=== PATIENT | female | born 1975 | race Caucasian/White ===

== ENCOUNTER → 2017-09-21 | Outpatient (CLI) | payer OTHER ==
[~2017-09-21] MED LIST: PRENCAP6 PO; VITATAB25 PO
== END ==
LOC: HPND 08:50
PROVIDERS: ATTEND Obstetrics & Gynecology
DX: O09.522 Supervision of elderly multigravida, second trimester (principal); O35.8XX0 Maternal care for other (suspected) fetal abnormality and damage, not applicable or unspecified; Z36.3 Encounter for antenatal screening for malformations
CPT/HCPCS: 76811

== ENCOUNTER 2017-12-16 17:28 | Emergency (ER) | payer OTHER ==
[~2017-12-16] VITALS: Ht 170.2 cm; Wt 90.0 kg
[2017-12-16 17:51] VITALS: BP 139/74; PULSE 98; RESP 18; TEMP 98; O2SAT 98
[2017-12-16] MEDS ORDERED: PREN29TA PO (19:01)
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
== END 2017-12-16 21:52 | disposition home or self-care (01) ==
LOC: NEPD 17:28 → HOBED 21:52
DX: Z04.1 Encounter for examination and observation following transport accident (principal)
CPT/HCPCS: 59025

== ENCOUNTER 2018-01-03 04:18 | Inpatient (IN) | payer OTHER ==
[~2018-01-03] VITALS: Ht 170.2 cm; Wt 92.0 kg
[~2018-01-03 04:18] MED LIST changes: +PREN29TA PO; -PRENCAP6 PO; -VITATAB25 PO
[2018-01-03] MEDS ORDERED: LACTATED RINGER'S 1000 ML INJ 1,000 ML IV ONE ×2 (04:55→12:00)
--- NOTE | 2018-01-03 05:00 | HHI.HP ---
HPI Chief Complaint Water broke Date Seen: January 03, 2018 Time Seen: 04:55 Travel History International Travel<30 Days: No Contact w/Intl Traveler<30Days: No Known Affected Area: No History of Present Illness HPI 42-year-old white female PCS at 39 weeks the patient to the [facility] clinic presents with gross rupture membranes light meconium, heart rate tracing reactive, she is sapphire irregularly and not feeling them Weeks Gestation: 39 Para: 1 : 3 Last Menstrual Period: January 03, 2018 Miscarriage: 1 History Obstetric History Obstetric History 1 in 2013 and in 2012 a molar Past Surgical History Narrative Surgical and a D&C for molar Breast implants Colposcopy and LEEP Social History Alcohol Use: No Tobacco Use: No Substance Abuse: No Allergies-Medications (Allergen,Severity, Reaction): Coded Allergies: No Known Allergies (Unverified Allergy, Unknown, 01/03/18) Home Meds Reported Medications Vit-Iron Carbonyl ( Plus Iron 29-1 mg) 29 Mg Iron-1 Mg Tab, 1 TAB PO DAILY for Nutritional Supplement, #30 TAB 0 Refills 12/16/17 Review of Systems General / Constitutional: No: Fever, Weight Gain, Chills, Other Eyes: No: Diploplia, Blurred Vision, Visual changes, Pain, Photophobia HENT: No: Headaches, Vertigo, Lightheadedness Cardiovascular: No: Irregular Rhythm, Chest Pain or Discomfort, Palpitations, Tachycardia, Syncope, Varicosities, Edema, Cyanosis Respiratory: No: Cough, Short of Breath, Other Gastrointestinal: No: Nausea, Vomiting, Diarrhea Genitourinary: No: Decreased Urinary Output, Oliguria Musculoskeletal: No: Limited ROM, Weakness, Cramping, Edema, Pain Skin: No Rash, No Itching, No Dryness, No Lumps, No Change in Pigmentation, No Change in Nails, No Alopecia, No Lesions Neurologic: No: Weakness, Dizziness, Syncope, Focal Abnormalities, Coordination Problem, Headache, Slurred Speech, Seizures Psychiatric: No: Depression, Suicidal Ideations, Homicidal Ideation Endocrine: No: Heat Intolerance, Cold Intolerance, Polydipsia, Polyuria, Other Physical Exam Narrative GENERAL: Well-nourished, well-developed patient. SKIN: Warm and dry. HEAD: Normocephalic and atraumatic. EYES: No scleral icterus. No injection or drainage. ENT: No nasal drainage noted. Mucous membranes pink. Airway patent. NECK: Supple, trachea midline. No JVD. CARDIOVASCULAR: Regular rate and rhythm without murmurs, gallops, or rubs. RESPIRATORY: Breath sounds equal bilaterally. No accessory muscle use. BREASTS: Bilateral exam showed no masses , no retractions, no nipple discharge. ABDOMEN/GI: Abdomen soft, non-tender, bowel sounds present, no rebound, no guarding Gravid to [39-] weeks size Fundal Height: [39-] GENITOURINARY: External Genitalia: intact and normal in appearance BUS glands: [-] Cervix: [1-] Dilatation: [-1] Effacement: [50-] Station: [-3] Presentation: [vtx-] Membranes: [ ruptured] light meconium Uterine Contractions: [-irreg] FHT's: Category: [-1] Baseline: [133-] Reactive: [-R] Variability: [mod-] Decels: [0-] EXTREMITIES: No cyanosis or edema. BACK: Nontender without obvious deformity. No CVA tenderness. NEUROLOGICAL: Awake and alert. Motor and sensory grossly within normal limits. Five out of 5 muscle strength in all muscle groups. Normal speech. Caprini VTE Risk Assessment Caprini VTE Risk Assessment: No/Low Risk (score <= 1) Caprini Risk Assessment Model Point Value = 1 Point Value = 2 Point Value = 3 Point Value = 5 Age 41-60 Minor surgery BMI > 25 kg/m2 Swollen legs Varicose veins or History of unexplained or recurrent spontaneous Oral contraceptives or hormone replacement Sepsis (< 1 month) Serious lung disease, including pneumonia (< 1 month) Abnormal pulmonary function Acute myocardial infarction Congestive heart failure (< 1 month) History of inflammatory bowel disease Medical patient at bed rest Age 61-74 Arthroscopic surgery Major open surgery (> 45 min) Laparoscopic surgery (> 45 min) Malignancy Confined to bed (> 72 hours) Immobilizing plaster cast Central venous access Age >= 75 History of VTE Family history of VTE Factor V Leiden Prothrombin [id number] Lupus anticoagulant Anticardiolipin antibodies Elevated serum homocysteine Heparin-induced thrombocytopenia Other congenital or acquired thrombophilia Stroke (< 1 month) Elective arthroplasty Hip, pelvis, or leg fracture Acute spinal cord injury (< 1 month) Prophylaxis Regimen Total Risk Factor Score Risk Level Prophylaxis Regimen 0-1 Low Early ambulation 2 Moderate Order ONE of the following: *Sequential Compression Device (SCD) *Heparin 5000 units SQ BID 3-4 Higher Order ONE of the following medications: *Heparin 5000 units SQ TID *Enoxaparin/Lovenox 40 mg SQ daily (WT < 150 kg, CrCl > 30 mL/min) *Enoxaparin/Lovenox 30 mg SQ daily (WT < 150 kg, CrCl > 10-29 mL/min) *Enoxaparin/Lovenox 30 mg SQ BID (WT < 150 kg, CrCl > 30 mL/min) AND/OR *Sequential Compression Device (SCD) 5 or more Highest Order ONE of the following medications: *Heparin 5000 units SQ TID (Preferred with Epidurals) *Enoxaparin/Lovenox 40 mg SQ daily (WT < 150 kg, CrCl > 30 mL/min) *Enoxaparin/Lovenox 30 mg SQ daily (WT < 150 kg, CrCl > 10-29 mL/min) *Enoxaparin/Lovenox 30 mg SQ BID (WT < 150 kg, CrCl > 30 mL/min) AND *Sequential Compression Device (SCD) Data Data Orders Orders Ob (2e) Additional Admit Info (01/03/18 04:41) Admit To Inpatient (01/03/18 ) Vital Signs (Adult) .ON ADMISSION (01/03/18 04:55) Activity Oob Ad Fatmata (01/03/18 04:55) Heart (01/03/18 04:55) Urinary Catheter Management SHAKILA.Q8H (01/03/18 04:55) ^ Preps (01/03/18 04:55) Scd / Silviano / Foot Pump SHAKILA.QSHIFT (01/03/18 04:55) ^ Ultrasound For Locatio (01/03/18 04:55) Diet Npo (01/03/18 Breakfast) Lactated Ringer's 1000 Ml Inj (Lr 1000 M (01/03/18 04:55) Lactated Ringer's 1000 Ml Inj (Lr 1000 M (01/03/18 05:25) Cefazolin 2 Gm Premix (Ancef 2 Gm Premix (01/03/18 06:00) Citric Acid-Sodium Citrate Liq (Bicitra (01/03/18 06:30) Type And Screen (01/03/18 04:55) Complete Blood Count With Diff (01/03/18 04:55) Urinalysis - C+S If Indicated (01/03/18 04:55) Drug Screen, Random Urine (01/03/18 04:55) Specimen To Be Collected PRN (01/03/18 04:55) Specimen To Be Collected PRN (01/03/18 04:55) Group B Strep: Negative Assessment/Plan Assessment and Plan 39 week intrauterine with gross rupture of membranes and light meconium not in labor at this time. Patient's previous and requests repeat which is she is scheduled for next week Logan Sanchez II, MD January 03, 2018 05:00
[2018-01-03 05:29] LABS: AUTOMATED NEUTROPHIL # 6.9 TH/MM3 (1.8-7.7); BASOPHIL # 0.1 TH/MM3 (0-0.2); BASOPHIL % 0.6 % (0.0-2.0); EOSINOPHIL # 0.1 TH/MM3 (0-0.4); EOSINOPHIL % 1.1 % (0.0-4.0); HEMATOCRIT 36.9 % (35.0-46.0); HEMOGLOBIN 12.8 GM/DL (11.6-15.3); LYMPH % 25.3 % (9.0-44.0); LYMPHOCYTE # 2.6 TH/MM3 (1.0-4.8); MEAN CELL VOLUME 84.8 FL (80.0-100.0); MEAN CORPUSCULAR HEMOGLOBIN 29.5 PG (27.0-34.0); MEAN CORPUSCULAR HGB CONC 34.8 % (32.0-36.0); MEAN PLATELET VOLUME 8.3 FL (7.0-11.0); MONO % 7.5 % (0.0-8.0); MONOCYTE # 0.8 TH/MM3 (0-0.9); NEUT % 65.5 % (16.0-70.0); PLATELET COUNT 352 TH/MM3 (150-450); RED BLOOD COUNT 4.35 MIL/MM3 (4.00-5.30); RED CELL DISTRIBUTION WIDTH 13.4 % (11.6-17.2); WHITE BLOOD COUNT 10.5 TH/MM3 (4.0-11.0)
[2018-01-03] MEDS: LACTATED RINGER'S 1000 ML INJ 1,000 ML IV SCH ×2 (05:43→07:14)
[2018-01-03 05:46] LABS: BILIRUBIN, URINE NEG (NEG); BLOOD, URINE SMALL (NEG); GLUCOSE,URINE NEG (NEG); KETONE, URINE NEG (NEG); MUCUS URINE FEW /lpf (OCC); NITRITE,URINE NEG (NEG); PH, URINE 6.5 (5.0-8.5); SQUAMOUS EPITHELIAL CELL URINE 6 /hpf (0-5); URINE COLOR LIGHT-YELLOW (YELLW/STRAW); URINE LEUKOCYTE ESTERASE NEG (NEG)
[2018-01-03] MEDS ORDERED: ceFAZolin 2 GM PREMIX 50 ML IV SCH (06:00)
[2018-01-03] MEDS ORDERED: CITRIC ACID-SODIUM CITRATE LIQ 30 ML UDC PO SCH (06:30)
[2018-01-03] MEDS ORDERED: MORPHINE SULFATE PF 5 MG/10 ML VIAL ONE (06:51)
[2018-01-03] MEDS ORDERED: ACETAMINOPHEN 1000 MG/100 ML 100 ML IV ONE ×2 (06:51→08:30)
[2018-01-03] MEDS ORDERED: SODIUM CHLORIDE 0.9% FLUSH 10 ML FLUSH IV FLUSH PRN (08:30)
[2018-01-03] MEDS ORDERED: oxyCODONE/ACETAMINOPHEN 5 MG/325 MG TAB PO PRN ×2 (08:30)
[2018-01-03] MEDS ORDERED: ONDANSETRON ODT 4 MG TAB SL PRN (08:30)
[2018-01-03] MEDS ORDERED: OXYTOCIN 30 UNITS-500ML PREMIX 500 ML IV ONE (08:30)
[2018-01-03] MEDS ORDERED: ZOLPIDEM TARTRATE 5 MG TAB PO PRN (08:30)
[2018-01-03] MEDS ORDERED: SIMETHICONE 80 MG CHEWABLE TAB PO PRN (08:30)
--- NOTE | 2018-01-03 08:38 | PD.OB.DELI ---
Procedure Note Section Procedure Pre Op Diagnosis: (1) Spontaneous rupture of amniotic membranes (2) Term (3) History of delivery Post Op Diagnosis: (1) S/P repeat low transverse (2) Spontaneous rupture of amniotic membranes (3) Term (4) History of delivery Performed by Shyla Horta Procedure: Repeat Low Transverse Sec Indication for delivery: Desired elective repeat Previous condition: None Informed consent obtained: For anesthesia, For procedure Confirmed correct: Patient, Procedure, Site, Time-out taken Anesthesia: Spinal Medication prior to procedure: As documented in eMAR Monitoring during procedure: Blood pressure monitoring, potline monitor, Pulse oximetry Urinary catheter: Inserted using sterile technique, To dependent drainage, ml urine output (200) Sterile preparation: Duraprep, In usual fashion, With drapes to expose affected area Position: Supine with wedge to right side Operative Features Skin Incision: Pfannenstiel Uterine Incision: Low transverse w/knife / scissors Membranes Ruptured: Previously, Amount of liquid (scant), Appearance of fluid ( meconium) Presentation: Vertex Delivery date: January 03, 2018 Delivery time: 07:59 Delivery of : Uneventful : Male, Single One Minute : 8 Five Minute : 9 Weight: 7#9oz Status of : Viable, Cord blood, Nursery present Placenta delivered: Intact Medications: Antibiotics (Ancef 2g IV preop) Estimated blood loss: 500 mL Procedure tolerated: Well Maternal Condition: Stable Condition: Stable Procedure in detail see dictated op note for full details Shyla Horta MD January 03, 2018 08:38
--- NOTE | 2018-01-03 08:56 | MP ---
cc: Shyla Horta MD DATE OF OPERATION: 01/03/2018 PREOPERATIVE DIAGNOSES: 1. at 38 weeks, 6 days. 2. Spontaneous rupture of amniotic fluid. 3. History of delivery for desired repeat. POSTOPERATIVE DIAGNOSIS: 1. at 38 weeks, 6 days. 2. Spontaneous rupture of amniotic fluid. 3. History of delivery for desired repeat. 4. Postoperative day number Zero. INDICATIONS FOR PROCEDURE: Chaka Aviles is a 42-year-old 3, para 2-0-1-2, who was seen and evaluated in the pharmacy delivery driver hours of 01/03/18 in the labor and delivery triage area for a complaint of leakage of fluid. She was ruled in for rupture of amniotic fluid, but she was having rare contractions and was not dilated. The patient had a history of delivery and desired a repeat. As such, she was taken for surgery. PROCEDURE PERFORMED: Repeat low transverse delivery. SURGEON: Shyla Horta MD TYPE OF ANESTHESIA: Spinal. ESTIMATED BLOOD LOSS: 500 mL. IV FLUIDS REPLACEMENT: 2600 mL. URINE OUTPUT: 200 mL clear urine draining the Mazariegos bag at the end of the procedure. COMPLICATIONS: None. COUNTS: Sponge, lap, instrument and needle correct x 2. PROPHYLAXIS: Ancef 2 grams IV was given preoperatively and SCDs were on and functioning throughout the entire case. INTRAOPERATIVE FINDINGS: Include a vigorous viable male with Apgars of 8 and 9, weight 7 pounds 9 ounces. Amniotic fluid was meconium. Normal appearing uterus and bilateral adnexa. Minimal scar tissue from prior . PROCEDURE IN DETAIL: After reviewing the informed consent, the patient was taken to the operating suite where a timeout was performed to identify the patient, the planned procedure and any known allergies to drugs or drug products. The patient was then placed sitting up on the exam table and spinal anesthesia was administered without difficulty and found to be adequate. The patient was then laid back in dorsal supine position with a bump under her right side. Abdomen and perineum were prepped and draped in normal sterile fashion. Mazariegos catheter was placed using sterile technique. Attention was turned abdominally where the patient's previous area of , which had some abnormal appearing scar tissue consistent with a keloid, was excised for a scar revision. The incision was then carried down to the underlying layer of fascia with the Bovie. The fascia was incised in the midline. Incision was extended laterally with sharp dissection using Mann scissors. Superior aspect of the fascial incision was elevated with Jennifer clamps and the rectus muscles were dissected off sharply with Mann scissors. Kochers were then moved to the inferior edge of the fascia and the rectus muscles were again dissected off sharply using Mann scissors. The rectus muscles were then in the midline. Peritoneum was identified, entered bluntly with surgeon's index finger. Incision was extended superiorly and inferiorly with good visualization of intra-abdominal contents. Bladder blade was placed. Using pickups and Metzenbaum scissors, a bladder flap was made. The bladder blade was then replaced. A scalpel was then used to make a low transverse uterine incision. This was extended bluntly using bandage scissors. 's head was then grasped and flexed out through the incision. Using gentle fundal pressure, the rest of the readily delivered. was immediately vigorous and crying upon delivery. The infant's nose and mouth were suctioned with bulb suction. Delayed cord clamping at 45 seconds was performed. Cord was then doubly clamped and cut. was handed off to the awaiting nursery staff. The placenta was delivered spontaneously using gentle cord traction and fundal massage. The uterus was then cleared of all clots and debris with sterile moist lap sponges and exteriorized. The uterine incision was repaired in a double-layer with 1 chromic, first in a running locked layer, then in an imbricating layer with excellent hemostasis noted. Posterior cul-de-sac was irrigated copiously with warm sterile saline. Uterus was returned to the abdomen. Peritoneum was then closed in a running layer with 2-0 chromic. Fascia was closed in a running layer with #1 Vicryl. Subcutaneous tissue was irrigated copiously and dried and the area was closed in an interrupted fashion using 2-0 chromic to close the subcutaneous space. The skin was then cleaned and dried and using a 3-0 Monocryl the skin was closed in a subcuticular fashion. Steri-Strips and a standard dressing were then placed. The procedure concluded at this point. The patient tolerated the procedure well without complications. DISPOSITION: The patient's estimated length of stay is 2-3 postoperative days and status is nursery. MD GRICELDA Garcia , 08:34 AM , 08:54 AM KALPESH
[2018-01-03] MEDS ORDERED: OXYTOCIN 30 UNITS-500ML PREMIX 500 ML ONE (08:58)
[2018-01-03] MEDS ORDERED: SODIUM CHLORIDE 0.9% FLUSH 10 ML FLUSH IV FLUSH SCH (09:00)
[2018-01-03] MEDS ORDERED: EPIDURAL-DO NOT ADMINISTER ANTICOAGULANTS PRN (10:15)
[2018-01-03] MEDS ORDERED: EPIDURAL-DIPHENHYDRAMINE HCL 50 MG CAP PO PRN (10:15)
[2018-01-03] MEDS ORDERED: EPIDURAL-NALOXONE HCL 0.4 MG/ML AMP IV PUSH PRN (10:15)
[2018-01-03] MEDS ORDERED: EPIDURAL-DIPHENHYDRAMINE HCL 50 MG/ML VIAL IV PUSH PRN (10:15)
[2018-01-03] MEDS ORDERED: EPIDURAL-NO SYSTEMIC NARCOTICS PRN (10:15)
[2018-01-03] MEDS: KETOROLAC TROMETHAMINE 60 MG/2 ML (IM) VIAL IM PRN ×2 (11:16→17:21)
[2018-01-03] MEDS ORDERED: DEXAMETHASONE SOD PHOS 4 MG/ML VIAL IV ONE (12:00)
[2018-01-03] MEDS ORDERED: ONDANSETRON HCL 4 MG/2 ML VIAL IV ONE (12:00)
[2018-01-03] MEDS ORDERED: OXYTOCIN 10 UNIT/ML AMP IV ONE (12:00)
[2018-01-03] MEDS ORDERED: PROMETHAZINE INJ 25 MG/ML VIAL IM PRN (12:30)
[2018-01-03] MEDS ORDERED: LACTATED RINGER'S 1000 ML INJ 1,000 ML IV SCH (13:29)
[2018-01-03] MEDS ORDERED: OXYTOCIN 30 UNITS-500ML PREMIX 500 ML IV PRN (13:30)
[2018-01-04] MEDS: IBUPROFEN 600 MG TAB PO PRN ×3 (05:34→20:55)
[2018-01-04] MEDS: ACETAMINOPHEN 325 MG TAB PO PRN ×3 (05:35→20:55)
[2018-01-04 05:48] LABS: AUTOMATED NEUTROPHIL # 8.6 TH/MM3 (1.8-7.7); BASOPHIL % 0.4 % (0.0-2.0); EOSINOPHIL % 0.3 % (0.0-4.0); HEMATOCRIT 28.8 % (35.0-46.0); HEMOGLOBIN 9.9 GM/DL (11.6-15.3); LYMPH % 18.4 % (9.0-44.0); LYMPHOCYTE # 2.1 TH/MM3 (1.0-4.8); MEAN CELL VOLUME 85.3 FL (80.0-100.0); MEAN CORPUSCULAR HEMOGLOBIN 29.3 PG (27.0-34.0); MEAN CORPUSCULAR HGB CONC 34.3 % (32.0-36.0); MEAN PLATELET VOLUME 7.8 FL (7.0-11.0); MONO % 6.8 % (0.0-8.0); MONOCYTE # 0.8 TH/MM3 (0-0.9); NEUT % 74.1 % (16.0-70.0); PLATELET COUNT 281 TH/MM3 (150-450); RED BLOOD COUNT 3.38 MIL/MM3 (4.00-5.30); RED CELL DISTRIBUTION WIDTH 13.7 % (11.6-17.2); WHITE BLOOD COUNT 11.6 TH/MM3 (4.0-11.0)
--- NOTE | 2018-01-04 08:23 | HHI.OB ---
Subjective Post Operative Day: 1 Objective Result Diagram: 01/04/18 0539 Objective Remarks GENERAL: Well-nourished, well-developed patient. CARDIOVASCULAR: Regular rate and rhythm without murmurs, gallops, or rubs. RESPIRATORY: Breath sounds equal bilaterally. No accessory muscle use. ABDOMEN/GI: Abdomen soft, non-tender, bowel sounds present. bandage Clean, dry and intact. Fundus: Firm, non-tender at umbilicus. GENITOURINARY: Light to moderate bleeding. EXTREMITIES: No cyanosis or edema, non-tender, without signs of DVT. Medications and IVs Current Medications Medications (Trade) Dose Ordered Sig/Dar Route Start Time Stop Time Status Last Admin Lactated Ringer's 1,000 ml @ 100 mls/hr Q10H IV 01/03/18 13:29 01/04/18 09:28 Oxytocin 500 ml @ 100 mls/hr UNSCH X1 PRN IV 01/03/18 13:30 01/04/18 13:29 (NS Flush) 2 ml BID IV FLUSH 01/03/18 09:00 (NS Flush) 2 ml UNSCH PRN IV FLUSH 01/03/18 08:30 (Mylicon Chew) 80 mg QID PRN PO 01/03/18 08:30 (Tylenol) 650 mg Q6H PRN PO 01/03/18 08:30 01/04/18 05:35 (Motrin) 600 mg Q6H PRN PO 01/03/18 08:30 01/04/18 05:34 (Toradol Inj) 30 mg Q6H PRN IM 01/03/18 08:30 01/04/18 08:29 01/03/18 17:21 (Percocet 5-325 Mg) 1 tab Q4H PRN PO 01/03/18 08:30 (Percocet 5-325 Mg) 2 tab Q4H PRN PO 01/03/18 08:30 (Denice-Colace) 2 tab Q12H PRN PO 01/03/18 08:30 (Ambien) 5 mg HS PRN PO 01/03/18 08:30 (M-M-R Ii Inj) 0.5 ml ONCE ONCE SQ 01/04/18 16:00 01/04/18 16:01 (Boostrix Inj) 0.5 ml ONCE ONCE IM 01/04/18 16:00 01/04/18 16:01 (Zofran Odt) 4 mg Q6H PRN SL 01/03/18 08:30 ([facility] [place] [facility] [place] NO SYSTEMIC NARCOTICS TO BE GIVEN FO... UNSCH PRN .XX 01/03/18 10:15 01/04/18 10:14 (Narcan Inj) 0.4 mg UNSCH PRN IV PUSH 01/03/18 10:15 01/04/18 10:14 (Benadryl Inj) 25 mg Q6H PRN IV PUSH 01/03/18 10:15 01/04/18 10:14 (Benadryl) 50 mg Q6H PRN PO 01/03/18 10:15 01/04/18 10:14 ([facility] [place] [facility] [place] ALL NURSING DEPARTMENTS UNSCH PRN .XX 01/03/18 10:15 01/04/18 10:14 (Phenergan Inj) 25 mg Q4H PRN IM 01/03/18 12:30 01/03/18 12:53 Assessment/Plan Assessment and Plan 39 week intrauterine with gross rupture of membranes and light meconium not in labor at this time. Patient's previous and requests repeat which is she is scheduled for next week POD 1: doing well no questions routine post op care Kellie Montero MD January 04, 2018 08:23
[2018-01-04] MEDS ORDERED: DIPHTH/TETANUS/ACEL PERTUSSIS (BOOSTER) 0.5 ML VIAL/PFS IM ONE (16:00)
[2018-01-04] MEDS ORDERED: MEASLES, MUMPS, RUBELLA VACCINE 0.5 ML VIAL SQ ONE (16:00)
[2018-01-04 20:08] VITALS: BP 142/62; PULSE 98; RESP 19; TEMP 98.4
[2018-01-04] MEDS: DOCUSATE SODIUM 50 MG/SENNA 8.6 MG TAB PO PRN (21:12)
[2018-01-05] MEDS: ACETAMINOPHEN 325 MG TAB PO PRN ×4 (02:53→21:47)
[2018-01-05] MEDS: IBUPROFEN 600 MG TAB PO PRN ×4 (02:53→21:44)
--- NOTE | 2018-01-05 07:41 | HHI.OB ---
Subjective Post Operative Day: 2 Remarks PT feeling ok, does not feel ready to go home. Is ambulating, voiding, passing flatus. Did not like how percocet made her feel. Objective Vitals/I&O Vital Signs Date Time Temp Pulse Resp B/P (MAP) Pulse Ox O2 Delivery O2 Flow Rate FiO2 01/04/18 20:08 98.4 98 19 142/62 (88) Result Diagram: 01/04/18 0539 Objective Remarks GENERAL: Well-nourished, well-developed patient. CARDIOVASCULAR: Regular rate and rhythm without murmurs, gallops, or rubs. RESPIRATORY: Breath sounds equal bilaterally. No accessory muscle use. ABDOMEN/GI: Abdomen soft, non-tender, bowel sounds present. incision Clean, dry and intact. Fundus: Firm, non-tender at umbilicus. GENITOURINARY: Light to moderate bleeding. EXTREMITIES: No cyanosis or edema, non-tender, without signs of DVT. Medications and IVs Current Medications Medications (Trade) Dose Ordered Sig/Dar Route Start Time Stop Time Status Last Admin (NS Flush) 2 ml BID IV FLUSH 01/03/18 09:00 (NS Flush) 2 ml UNSCH PRN IV FLUSH 01/03/18 08:30 (Mylicon Chew) 80 mg QID PRN PO 01/03/18 08:30 (Tylenol) 650 mg Q6H PRN PO 01/03/18 08:30 01/05/18 02:53 (Motrin) 600 mg Q6H PRN PO 01/03/18 08:30 01/05/18 02:53 (Percocet 5-325 Mg) 1 tab Q4H PRN PO 01/03/18 08:30 01/04/18 09:28 (Percocet 5-325 Mg) 2 tab Q4H PRN PO 01/03/18 08:30 (Denice-Colace) 2 tab Q12H PRN PO 01/03/18 08:30 01/04/18 21:12 (Ambien) 5 mg HS PRN PO 01/03/18 08:30 (Zofran Odt) 4 mg Q6H PRN SL 01/03/18 08:30 (Phenergan Inj) 25 mg Q4H PRN IM 01/03/18 12:30 01/03/18 12:53 Assessment/Plan Assessment and Plan POD 2 RCD : doing well routine post op care d/c tomorrow Ana Rodriguez MD January 05, 2018 07:41
[2018-01-05] MEDS: DOCUSATE SODIUM 50 MG/SENNA 8.6 MG TAB PO PRN ×2 (08:57→21:44)
[2018-01-05 20:41] VITALS: BP 126/80; PULSE 89; RESP 18; TEMP 98.4
[2018-01-06] MEDS: IBUPROFEN 600 MG TAB PO PRN ×2 (07:07→12:43)
[2018-01-06] MEDS: ACETAMINOPHEN 325 MG TAB PO PRN ×2 (07:07→11:14)
--- NOTE | 2018-01-06 08:49 | HHI.OB ---
Subjective Post Operative Day: 3 Remarks percocet too strong , will try norco Objective Vitals/I&O Vital Signs Date Time Temp Pulse Resp B/P (MAP) Pulse Ox O2 Delivery O2 Flow Rate FiO2 01/05/18 20:41 98.4 89 18 126/80 (95) Result Diagram: 01/04/18 0539 Objective Remarks GENERAL: Well-nourished, well-developed patient. CARDIOVASCULAR: Regular rate and rhythm without murmurs, gallops, or rubs. RESPIRATORY: Breath sounds equal bilaterally. No accessory muscle use. ABDOMEN/GI: Abdomen soft, non-tender, bowel sounds present. incision Clean, dry and intact. Fundus: Firm, non-tender at umbilicus. GENITOURINARY: Light to moderate bleeding. EXTREMITIES: No cyanosis or edema, non-tender, without signs of DVT. Medications and IVs Current Medications Medications (Trade) Dose Ordered Sig/Dar Route Start Time Stop Time Status Last Admin (NS Flush) 2 ml BID IV FLUSH 01/03/18 09:00 (NS Flush) 2 ml UNSCH PRN IV FLUSH 01/03/18 08:30 (Mylicon Chew) 80 mg QID PRN PO 01/03/18 08:30 (Tylenol) 650 mg Q6H PRN PO 01/03/18 08:30 01/06/18 07:07 (Motrin) 600 mg Q6H PRN PO 01/03/18 08:30 01/06/18 07:07 (Percocet 5-325 Mg) 1 tab Q4H PRN PO 01/03/18 08:30 01/04/18 09:28 (Percocet 5-325 Mg) 2 tab Q4H PRN PO 01/03/18 08:30 (Denice-Colace) 2 tab Q12H PRN PO 01/03/18 08:30 01/05/18 21:44 (Ambien) 5 mg HS PRN PO 01/03/18 08:30 (Zofran Odt) 4 mg Q6H PRN SL 01/03/18 08:30 (Phenergan Inj) 25 mg Q4H PRN IM 01/03/18 12:30 01/03/18 12:53 Assessment/Plan Assessment and Plan POD 3 RCD : doing well routine post op care d/c tomorrow Discharge Planning routine Attending Attestation pt seen by Beckie Seo MD Jan 06, 2018 08:49
[2018-01-06] MEDS ORDERED: IBUP-232 PO (08:52)
[2018-01-06] MEDS ORDERED: NORC5TAB PO (08:52)
--- NOTE | 2018-01-06 08:52 | HHI.DCPOC ---
Discharge Care Plan Your Health Problems Are: Pelvic pain Report Symptoms to Your Doctor -Temperature above 100.5 degrees -Redness, of incision or excessive or foul smelling drainage -Unusual pain or calf pain -Increased vaginal bleeding -Painful or difficulty urinating -Feelings of extreme sadness or anxiety after 2 weeks Goals to Promote Your Health * To prevent worsening of your condition and complications * To maintain your health at the optimal level Directions to Meet Your Goals Take your medications as prescribed Follow your dietary instruction Follow activity as directed Ensure plenty of rest for recovery Drink fluids for hydration Keep your appointments as scheduled Take your immunizations and boosters as scheduled If your symptoms worsen call your PCP, if no PCP go to Urgent Care Center or Emergency Room Smoking is Dangerous to Your Health. Avoid second hand smoke Call the 24-hour crisis hotline for domestic abuse at Beckie Goyal MD Jan 06, 2018 08:52
[2018-01-06] MEDS ORDERED: ACETAMINOPHEN/HYDROcodone 325 MG/5 MG TAB PO PRN (09:00)
== END 2018-01-06 14:45 | disposition home or self-care (01) | DRG 766 ==
LOC: HOBED 04:18 → H2EB 04:41 → H1EA 09:51
PROVIDERS: ADMIT Obstetrics & Gynecology; ATTEND Obstetrics & Gynecology
PROC: 10D00Z1 Extraction of Products of Conception, Low, Open Approach (ICD-10-PCS; principal; 2018-01-03)
DX: O34.211 Maternal care for low transverse scar from previous cesarean delivery (principal); O77.0 Labor and delivery complicated by meconium in amniotic fluid; Z37.0 Single live birth; Z3A.38 38 weeks gestation of pregnancy
CPT/HCPCS: 59025; 80307; 81001; 84112; 85025; 86850; 86900; 86901; C1765; J0131; J0690; J1100; J1885; J2274; J2405; J2550; J2590; J7120